=== PATIENT | female | born 1940 | race Caucasian/White ===

== ENCOUNTER 2022-06-23 14:05 | Emergency (ER) | payer OTHER ==
[~2022-06-23] VITALS: Ht 177.8 cm; Wt 69.9 kg
[2022-06-23 14:17] VITALS: BP 135/69
--- NOTE | 2022-06-23 14:51 | NUR ---
EAR FORIEGN BODY EXTRACTED BY DR HALL USING ALLIGATOR FORCEPTS. PT TOLERATED PROCEDURE WELL.
== END 2022-06-23 14:59 | disposition home or self-care (01) ==
LOC: ER 14:07
DX: T16.2XXA Foreign body in left ear, initial encounter (principal); X58.XXXA Exposure to other specified factors, initial encounter; Y93.89 Activity, other specified; Y92.89 Other specified places as the place of occurrence of the external cause; Y99.8 Other external cause status